=== PATIENT | male | born 1965 | race Caucasian/White ===

== ENCOUNTER → 2017-12-25 | Outpatient (CLI) | payer OTHER ==
[~2017-12-25] MED LIST: ALLOPURINOL 10100 M1; ALLOPURINOL 30300 M1; ANTACID650 MG PO; COREG25 MG; COZAAR 50 MG TA50 M2 PO; ERGOCALCIF50000 UNIT PO; HYDROCODON-ACE1 EAC8; MAGOX 400400 MG PO; METFORMIN HCL500 MG PO; NIFEDIPINE ER60 M1; OMEPRAZOLE40 MG; SYNTHROID137 MC1 PO; TUMS PO
[2017-12-25 13:40] VITALS: BP 143/84
[2017-12-25 14:40] VITALS: BP 143/84
== END ==
LOC: OPONC 13:15
DX: E83.42 Hypomagnesemia (principal); R20.0 Anesthesia of skin; R20.2 Paresthesia of skin
CPT/HCPCS: 95000